=== PATIENT | female | born 1960 | race Hispanic/Latino ===

== ENCOUNTER 2016-06-16 12:18 | Emergency (ER) | payer MEDICAID, OTHER ==
[2016-06-16 12:33] VITALS: BP 129/89; PULSE 89; RESP 16; TEMP 98; O2SAT 97
--- NOTE | 2016-06-16 12:53 | ED PDOC ---
Lower Extremity Pain/Injury Time Seen by Provider: 06/16/16 12:39 Chief Complaint (Nursing): Lower Extremity Problem/Injury History Per: Patient History/Exam Limitations: no limitations Onset/Duration Of Symptoms: Days Current Symptoms Are (Timing): Still Present Severity: Moderate Additional Complaint(s): 55-year-old female, PMHx includes Hypertension, presents to the emergency department with complaints of leg pain. Patient states she has been experiencing pain to B/L lower extremities that started three days ago. Pain is persistent in nature, described as a "deep throbbing" sensation, that is worse when she is walking or standing. Additionally, patient reports that she sustained an injury to her sacral bone two months ago, after which she has had intermittent sacral tenderness, but no radiating to legs. States she was seen by her salesperson new cars for toe pain a few days ago. 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 Denies dizziness, shortness of breath, chest pain, nausea/vomiting, recent travel/immobility for prolonged periods, or any other associated symptoms. No other complaints at this time. Past Medical History Reviewed: Historical Data, Nursing Documentation, Vital Signs Vital Signs: Last Vital Signs Temp 98 F 06/16/16 12:28 Pulse 89 06/16/16 12:28 Resp 16 06/16/16 12:28 BP 129/89 06/16/16 12:28 Pulse Ox 97 06/16/16 12:28 - Medical History PMH: Anxiety, HTN Denies: Chronic Kidney Disease - Surgical History Surgical History: Appendectomy - Family History Family History: States: Unknown Family Hx - Home Medications Home Medications: Ambulatory Orders Medication Instructions Recorded amLODIPine [Norvasc] 5 mg PO DAILY 10/13/14 Naproxen [Naprosyn Tab] 1 tab PO Q8 PRN #21 tab 04/02/16 - Allergies Allergies/Adverse Reactions: Allergies Allergy/AdvReac Type Severity Reaction Status Date / Time No Known Allergies Allergy Verified 06/16/16 12:28 Review of Systems ROS Statement: Except As Marked, All Systems Reviewed And Found Negative Constitutional: Negative for: Fever, Chills Cardiovascular: Negative for: Chest Pain, Palpitations, Edema, Light Headedness Respiratory: Negative for: Shortness of Breath Gastrointestinal: Negative for: Vomiting Musculoskeletal: Positive for: Leg Pain. Negative for: Back Pain Skin: Negative for: Rash Neurological: Negative for: Weakness, Numbness Physical Exam - Reviewed Nursing Documentation Reviewed: Yes Vital Signs Reviewed: Yes - Physical Exam Appears: Positive for: Non-toxic, No Acute Distress Head Exam: Positive for: ATRAUMATIC, NORMOCEPHALIC Skin: Positive for: Warm, Dry. Negative for: Rash Eye Exam: Positive for: Normal appearance Neck: Positive for: Painless ROM Respiratory: Negative for: Accessory Muscle Use, Respiratory Distress Extremity: Positive for: Normal ROM, Calf Tenderness (B/L), Capillary Refill (< 2 seconds), Other (Pulses intact. No skin changes.). Negative for: Tenderness ( B/L THIGH.), Pedal Edema, Deformity, Swelling Neurologic/Psych: Positive for: Alert, Oriented - ECG O2 Sat by Pulse Oximetry: 97 Medical Decision Making Medical Decision Making: Impression: 55y/o F comes in w/ pain to B/L lower extremities. Patient is PERC rule negative Diff Dx (includes but not limited to) DVT (low suspicion) vs Musculoskeletal. Plan: * Ultrasound doppler LE. * Reassess and Disposition US: negtie for dvt pt advised to f/u with pmd and take motrin for pain stable appearing. Scribe Attestation: Documented by Sudhakar Fay, acting as a scribe for OSEI Mccormick. Provider Attestation: All medical record entries made by the Scribe were at my direction and personally dictated by me. I have reviewed the chart and agree that the record accurately reflects my personal performance of the history, physical exam, medical decision making, and the department course for this patient. I have also personally directed, reviewed, and agree with the discharge instructions and disposition. Disposition - Clinical Impression Clinical Impression: Muscle strain - Patient ED Disposition Is Patient to be Admitted: No Counseled Patient/Family Regarding: Studies Performed, Diagnosis, Need For Followup - Disposition Disposition: Routine/Home Disposition Time: 14:50 Condition: STABLE Instructions: Muscle Strain (ED) Print Language: CYMRAES
--- NOTE | 2016-06-16 18:17 | US ---
Bilateral lower extremity venous Doppler exam 06/16/2016. History: Calf pain. Duplex interrogation of the deep veins of the right and left lower extremities performed in standard fashion. No prior study available for comparison. Findings: The the visualized deep veins of the right and left lower extremities exhibit normal flow, compressibility augmentation without evidence of DVT. Impression: No evidence of DVT seen within the visualized deep veins of the right or left lower extremities.
== END 2016-06-16 14:53 | disposition home or self-care (01) ==
LOC: H.ER 12:18
DX: M79.604 Pain in right leg (principal); I10 Essential (primary) hypertension

== ENCOUNTER 2017-10-06 16:33 | Emergency (ER) | payer MEDICAID ==
[2017-10-06 16:58] VITALS: RESP 16; TEMP 98.6
[2017-10-06] MEDS ORDERED: Sodium Chloride 0.9% 1,000 ML IV STA (17:43)
[2017-10-06 18:13] LABS: BASO # 0.1 K/uL (0.0-0.2); BASO % 1.1 % (0.0-2.0); EOS # 0.1 K/uL (0.0-0.7); HEMOGLOBIN 13.2 g/dL (12.0-16.0); LYMPH # 2.7 K/uL (1.0-4.3); LYMPH % 31.5 % (20.0-40.0); MEAN CELL VOLUME 89.3 fl (81.0-99.0); MEAN CORPUSCULAR HEMOGLOBIN 31.1 pg (27.0-31.0); MEAN CORPUSCULAR HGB CONC 34.8 g/dL (33.0-37.0); MEAN PLATELET VOLUME 8.2 fl (7.2-11.7); MONO # 0.7 K/uL (0.0-0.8); MONO % 7.8 % (0.0-10.0); NEUT # 4.9 K/uL (1.8-7.0); NEUT % 58.6 % (50.0-75.0); RBC 4.26 Mil/uL (3.80-5.20); RED CELL DISTRIBUTION WIDTH 12.9 % (11.5-14.5); WHITE BLOOD COUNT 8.4 K/uL (4.8-10.8)
[2017-10-06 18:20] LABS: SQUAMOUS EPITHIAL 1 /hpf (0-5); URINE BILIRUBIN NEGATIVE (NEGATIVE); URINE BLOOD SMALL (NEGATIVE); URINE CLARITY SLIGHTY-CLOUDY (Clear); URINE COLOR YELLOW (YELLOW); URINE GLUCOSE (UA) NEG (Normal); URINE LEUKOCYTE ESTERASE NEG Leu/uL (Negative); URINE PROTEIN NEGATIVE (NEGATIVE); URINE UROBILINOGEN 0.2-1.0 mg/dL (0.2-1.0)
[2017-10-06 18:24] LABS: ALB/GLOB RATIO 1.2 (1.0-2.1); ALBUMIN 4.4 g/dL (3.5-5.0); ALT/SGPT 54 U/L (9-52); AST/SGOT 44 U/L (14-36); BLOOD UREA NITROGEN 11 mg/dl (7-17); CALCIUM 9.3 mg/dL (8.4-10.2); GFR NON-AFRICAN AMERICAN > 60
--- NOTE | 2017-10-06 21:31 | ED PDOC ---
HPI: Female Pain Time Seen by Provider: 10/06/17 17:29 Chief Complaint (Nursing): Female Genitourinary Chief Complaint (Provider): pelvic discomfort History Per: Patient History/Exam Limitations: no limitations Onset/Duration Of Symptoms: Days (3), Gradual Current Symptoms Are (Timing): Still Present Severity: Mild Quality Of Discomfort: Sharp, Burning Associated Symptoms: Back Pain. denies: Fever, Chills, Nausea, Vomiting, Diarrhea, Loss Of Appetite Alleviating Factors: None Additional Complaint(s): 57yo female c/o R pelvic pain ongoing for several days associated with some urinary discomfort and vaginal spotting (?). +mild back pain. Denies fever, syncope or diarrhea/vomiting. PMD [facility] Naik Abnormal Vaginal Bleeding: Yes Last Menstral Period: spotting Past Medical History Reviewed: Historical Data, Nursing Documentation, Vital Signs Vital Signs: Last Vital Signs Temp 98.6 F 10/06/17 16:56 Pulse 73 10/06/17 16:56 Resp 16 10/06/17 16:56 BP 148/82 10/06/17 16:56 Pulse Ox 99 10/06/17 16:56 - Medical History PMH: Anxiety, HTN Denies: Chronic Kidney Disease - Surgical History Surgical History: Appendectomy - Family History Family History: States: Unknown Family Hx - Living Arrangements Living Arrangements: With Family - Social History Current smoker - smoking cessation education provided: No Alcohol: None - Home Medications Home Medications: Ambulatory Orders Medication Instructions Recorded amLODIPine [Norvasc] 5 mg PO DAILY 10/13/14 Naproxen [Naprosyn Tab] 1 tab PO Q8 PRN #21 tab 04/02/16 Cephalexin [cephalexin] 500 mg PO BID #10 cap 10/06/17 - Allergies Allergies/Adverse Reactions: Allergies Allergy/AdvReac Type Severity Reaction Status Date / Time No Known Allergies Allergy Verified 10/06/17 16:56 Review of Systems Constitutional: Negative for: Fever ENT: Negative for: Throat Pain Cardiovascular: Negative for: Chest Pain Respiratory: Negative for: Shortness of Breath Gastrointestinal: Positive for: Abdominal Pain Genitourinary Female: Positive for: Dysuria, Frequency, Pelvic Pain Musculoskeletal: Negative for: Neck Pain Skin: Negative for: Rash, Lesions Neurological: Negative for: Weakness Physical Exam - Reviewed Nursing Documentation Reviewed: Yes Vital Signs Reviewed: Yes - Physical Exam Appears: Positive for: Well, Non-toxic, No Acute Distress Head Exam: Positive for: ATRAUMATIC, NORMAL INSPECTION, NORMOCEPHALIC Skin: Positive for: Normal Color, Warm, DRY Eye Exam: Positive for: EOMI, Normal appearance, PERRL ENT: Positive for: Normal ENT Inspection Neck: Positive for: Normal, Painless ROM Cardiovascular/Chest: Positive for: Regular Rate, Rhythm Respiratory: Positive for: CNT, Normal Breath Sounds Gastrointestinal/Abdominal: Positive for: Soft, Tenderness (RLQ mild). Negative for: Guarding, Rebound Back: Positive for: Normal Inspection Extremity: Positive for: Normal ROM Neurologic/Psych: Positive for: Alert, Oriented - Laboratory Results Result Diagrams: 10/06/17 18:06 10/06/17 18:06 Urine POC: Negative Urine dip results: Positive for: Blood - ECG O2 Sat by Pulse Oximetry: 99 Pulse Ox Interpretation: Normal Medical Decision Making Medical Decision Making: labs reviewed and clinically unremarkable small blood in urine EXAM DATE/TIME: 10/06/2017 5:44 PM CLINICAL HISTORY: 57 years old, female; Pain; Pelvic pain; Additional info: Rlq pain x3 days TECHNIQUE: Real-time transabdominal and transvaginal pelvic ultrasound (complete) with image documentation. Transvaginal imaging was used for better evaluation of the endometrium and adnexa. COMPARISON: No relevant prior studies available. FINDINGS: Uterus/cervix: Cervix is closed. Normal endometrial stripe thickness, measuring 3 mm. No myometrial mass. Right ovary: Unremarkable. No mass. Normal blood flow. Left ovary: Unremarkable. No mass. Normal blood flow. Free fluid: No free fluid. IMPRESSION: Normal pelvic ultrasound. Thank you for allowing us to participate in the care of your patient. Dictated and Authenticated by: Mark Odom MD 10/06/2017 8:19 PM Eastern Time ([place] & [place]) CT: COMPARISON: PELVIS/TRANSVAG US 10/06/2017 6:23 PM FINDINGS: Lung bases: Unremarkable. No mass. No consolidation. FINDINGS: Lung bases: Unremarkable. No mass. No consolidation. ABDOMEN: Liver: The liver is unremarkable. Gallbladder and bile ducts: The gallbladder is unremarkable. No biliary ductal dilatation. Pancreas: The pancreas is unremarkable. Spleen: The spleen is unremarkable. Adrenals: The adrenal glands are unremarkable. Kidneys and ureters: No hydronephrosis or nephrolithiasis. Stomach and bowel: No evidence of bowel obstruction. No pericolonic inflammatory stranding. PELVIS: Appendix: Appendix is not seen but there is no pericecal inflammatory change to suggest appendicitis. Bladder: No focal wall thickening of the urinary bladder. No stones. Reproductive: Uterus is unremarkable. No suspicious adnexal lesion seen. ABDOMEN and PELVIS: Intraperitoneal space: Unremarkable. No free air. No significant fluid collection. Bones/joints: No acute osseous abnormality. Soft tissues: No soft tissue swelling. Vasculature: Significantly limited assessment of the vasculature without contrast. No aortic aneurysm. Lymph nodes: No enlarged lymph nodes. IMPRESSION: 1. No hydronephrosis or nephrolithiasis. 2. Appendix is not seen but there is no pericecal inflammatory change to suggest appendicitis. Thank you for allowing us to participate in the care of your patient. Dictated and Authenticated by: Mark Odom MD 10/06/2017 8:15 PM Eastern Time ([place] & [place]) appears well in ED, abd nontender on re-eval 1030pm DC to followup PMD and [employer] given small ?vag spotting. Rx naprosyn, indications for return ER discussed. given symptoms cover w keflex for now until Urine cx negative Disposition - Clinical Impression Clinical Impression: Pelvic pain, Urinary tract infection - Patient ED Disposition Is Patient to be Admitted: No Counseled Patient/Family Regarding: Studies Performed, Diagnosis, Need For Followup, Rx Given - Disposition Referrals: Becki Naik MD [Staff Provider] - Disposition: Routine/Home Disposition Time: 23:29 Condition: STABLE Additional Instructions: Followup with Dr Naik and [employer] in 1-2 weeks, return to ER for any worse or new symptoms. Prescriptions: Cephalexin [cephalexin] 500 mg PO BID #10 cap Instructions: Urinary Tract Infections in Adults, Acute Abdomen (Belly Pain), Adult (DC) Forms: [employer] (Indonesian)
[2017-10-06 23:54] VITALS: BP 139/78; PULSE 70; O2SAT 97
--- NOTE | 2017-10-07 11:19 | US ---
Date of service: 10/06/2017 HISTORY: RLQ pain x3 days COMPARISON: None available. TECHNIQUE: Transvaginal pelvic ultrasound was performed. FINDINGS: UTERUS: Measures 6.9 x 4.4 x 3.0 cm. Anteverted, normal in size and appearance. No fibroid or other mass lesion seen. ENDOMETRIUM: Measures 2.8 mm in diameter. Normal appearance. CERVIX: No cervical abnormality identified. RIGHT OVARY: Measures 2.2 x 1.3 x 1.0 cm. No solid mass. Normal flow. LEFT OVARY: Measures 1.9 x 1.0 x 1.0 cm. No solid mass. Normal flow. FREE FLUID: No significant free fluid noted. OTHER FINDINGS: None. IMPRESSION: Normal pelvic ultrasound. A preliminary report was provided by [facility].
--- NOTE | 2017-10-07 12:13 | CT ---
Date of service: 10/06/2017 PROCEDURE: CT Abdomen and Pelvis without intravenous contrast HISTORY: RLQ and R flank pain, hematuria COMPARISON: None. TECHNIQUE: CT scan of the abdomen and pelvis was performed without administration of intravenous contrast. Oral contrast was not administered. Coronal and sagittal reformatted images were obtained. . Radiation dose: Total exam DLP = 568.29 mGy-cm. This CT exam was performed using one or more of the following dose reduction techniques: Automated exposure control, adjustment of the mA and/or kV according to patient size, and/or use of iterative reconstruction technique. FINDINGS: LOWER THORAX: There is dependent atelectasis in the lung bases. LIVER: Normal in size. No intrahepatic ductal dilatation. GALLBLADDER AND BILE DUCTS: No calcified gallstones. No biliary dilatation PANCREAS: Normal in size. No ductal dilatation. SPLEEN: Normal in size. ADRENALS: Normal in size. No discrete nodule. KIDNEYS AND URETERS: The right kidney is normal in size. There is mild fullness in the right collecting system and mild dilatation of the proximal and mid ureteral. No obstructing stone. The left kidney is normal in size without nephrolithiasis. No hydronephrosis. VASCULATURE: No aortic aneurysm. BOWEL: The small bowel loops are normal in caliber. There is moderate amount of stool in the colon and fecalization of distal small bowel contents consistent with chronic stasis. Scattered left colonic diverticula. . No bowel dilatation or wall thickening. No bowel obstruction. APPENDIX: No inflammatory changes in the right lower quadrant. PERITONEUM: No free fluid. No free air. LYMPH NODES: No enlarged lymph nodes. BLADDER: Well distended and grossly normal in appearance. REPRODUCTIVE: The uterus is normal in size BONES: No acute fracture. Within normal limits for the patient's age. OTHER FINDINGS: None. IMPRESSION: Mild fullness in the right renal collecting system and mild dilatation of the proximal and mid ureteral without evidence of obstructing stone. Findings could represent recent passage of stone. Pyelonephritis is not completely excluded however cannot be evaluated on noncontrast CT examination. Please correlate with urine analysis. No CT evidence for acute appendicitis. A preliminary report was provided by [facility].
== END 2017-10-06 23:54 | disposition home or self-care (01) ==
LOC: H.ER 16:33
DX: R10.2 Pelvic and perineal pain (principal); N39.0 Urinary tract infection, site not specified; I10 Essential (primary) hypertension; F41.9 Anxiety disorder, unspecified
CPT/HCPCS: 74176; 76830; 76856; 80053; 81003; 81025; 85025; 87086; 96374; 99283; J1885; J7030

== ENCOUNTER 2018-07-09 16:42 | Emergency (ER) | payer MEDICAID ==
--- NOTE | 2018-07-09 18:31 | ED PDOC ---
History of Present Illness History of Present Illness: 57 year old female presents to ED with cough, bodyaches, fever (to 101 F), sore throat, and diarrhea x4 days. Then the following day patient developed cough productive of green sputum and occasional SOB mostly at night. She also reports right sided ear pain but denies nausea, vomiting, nasal congestion. Patient further states she has had a hoarse throat for past few days. She has been taking Azithromycin 500 mg daily since 4 days ago, which was left over from previous prescription as she could not obtain an appointment with PMD until 2 weeks from now. Additionally, she states that ear pain has improved over past couple of days. Patient has not received flu shot this season. She further admits to having urinary frequency with foul odor as well as light brown colored vaginal discharge for past 4-5 days and vaginal itching. She has not taken any medications for the pain. PMD: none provided HPI: Influenza Time Seen by Provider: 07/09/18 16:59 Chief Complaint: Cough, Cold, Congestion Chief Complaint (Provider): Cough History Per: Patient Exam Limitations: no limitations Onset/Duration Of Symptoms: Days Past Medical History Reviewed: Historical Data, Nursing Documentation, Vital Signs Vital Signs: Last Vital Signs Temp 98.5 F 07/09/18 16:53 Pulse 81 07/09/18 16:53 Resp 16 07/09/18 16:53 BP 159/95 H 07/09/18 16:53 Pulse Ox 95 07/09/18 16:53 Primary Care Provider: Non [facility] Provider, - Medical History PMH: Anxiety, HTN Denies: Chronic Kidney Disease - Surgical History Surgical History: Appendectomy - Family History Family History: States: Unknown Family Hx - Social History Current smoker - smoking cessation education provided: No Alcohol: None Drugs: Denies - Immunization History Hx Tetanus Toxoid Vaccination: No Hx Influenza Vaccination: No Hx Pneumococcal Vaccination: No - Home Medications Home Medications: Ambulatory Orders Medication Instructions Recorded amLODIPine [Norvasc] 5 mg PO DAILY 10/13/14 Naproxen [Naprosyn Tab] 1 tab PO Q8 PRN #21 tab 04/02/16 Cephalexin [cephalexin] 500 mg PO BID #10 cap 10/06/17 Ibuprofen [Motrin Tab] 600 mg PO Q6 PRN #15 tab 10/06/17 Ibuprofen [Motrin Tab] 600 mg PO Q6 PRN 7 Days tab 07/09/18 Metronidazole 500 mg PO BID 7 Days tablet 07/09/18 guaiFENesin/Dextromethorphan 10 ml PO Q6 PRN 7 Days udc 07/09/18 [guaiFENesin-DM] - Allergies Allergies/Adverse Reactions: Allergies Allergy/AdvReac Type Severity Reaction Status Date / Time No Known Allergies Allergy Verified 07/09/18 16:54 Review of Systems ROS Statement: Except As Marked, All Systems Reviewed And Found Negative Constitutional: Positive for: Fever (101 F), Other (bodyaches) ENT: Positive for: Ear Pain (right sided), Throat Pain (sore throat), Other (hoarse throat). Negative for: Nose Congestion Respiratory: Positive for: Cough (productive of green sputum), Shortness of Breath (occasional, mostly at night) Gastrointestinal: Positive for: Diarrhea. Negative for: Nausea, Vomiting Genitourinary Female: Positive for: Frequency (foul odor), Vaginal Discharge (light brown color), Other (vaginal itching) Physical Exam - Reviewed Nursing Documentation Reviewed: Yes Vital Signs Reviewed: Yes - Physical Exam Appears: Positive for: No Acute Distress Head Exam: Positive for: ATRAUMATIC, NORMAL INSPECTION, NORMOCEPHALIC Eye Exam: Positive for: EOMI, Normal appearance, PERRL ENT: Positive for: Other (mild effusion on the right, no erythema, normal throat). Negative for: TM Is/Are (bulging) Cardiovascular/Chest: Positive for: Regular Rate, Rhythm. Negative for: Murmur Respiratory: Positive for: Normal Breath Sounds. Negative for: Respiratory Distress Pelvic Exam: Positive for: External Exam Normal, Speculum Exam Normal (performed in the presence of transport specialist Gabriela), Discharge (yellow discharge noted in vaginal vault). Negative for: Active Bleeding, Cervicitis, Lesions, Mass, Tender W/Cervical Motion, Tender Adnexa, Ulcers Back: Positive for: Normal Inspection. Negative for: L CVA Tenderness, R CVA Tenderness Lymphatic: Positive for: Normal Exam Neurological/Psych: Positive for: Awake, Alert, Oriented (x3) Medical Decision Making Medical Decision Making: Time: 1809 Initial Impression: Initial Plan: --UDip --Urine culture --Rapid flu --Ibuprofen 600 mg PO x1 --CXR --Pelvic exam 1820 UDip Small amount of blood, leukocyte and nitrate negative, cloudy so UA ordered 1951 Pelvic exam done in the presence of transport specialist Gabriela. External exam was normal but speculum exam shows white yellow discharge and no cervicitis. Discharge was thin. Bimanual exam was normal. Genital culture and patient to be treated for bacterial vaginosis and advised to be called when general results are significant for other findings. Scribe Attestation: Documented by Valdez Flores, acting as a scribe for Kalpana Arevalo PA-C Provider Scribe Attestation: All medical record entries made by the Scribe were at my direction and personally dictated by me. I have reviewed the chart and agree that the record accurately reflects my personal performance of the history, physical exam, medical decision making, and the department course for this patient. I have also personally directed, reviewed, and agree with the discharge instructions and disposition. - ECG O2 Sat by Pulse Oximetry: 95 (RA) Pulse Ox Interpretation: Normal Disposition - Clinical Impression Clinical Impression: Influenza-like illness, Bacterial vaginosis - Patient ED Disposition Is Patient to be Admitted: No - Disposition Referrals: [facility] [Outside] Disposition: Routine/Home Disposition Time: 20:08 Condition: STABLE Additional Instructions: Take Robitussin for Cough. Take Metronidazole for vaginal discharge. Return to ER if your shortness of breath or symptoms worsen. No further Azithromycin or antibiotics needed. Prescriptions: guaiFENesin/Dextromethorphan [guaiFENesin-DM] 10 ml PO Q6 PRN 7 Days udc PRN Reason: Cough Ibuprofen [Motrin Tab] 600 mg PO Q6 PRN 7 Days tab PRN Reason: Pain, Moderate (4-7) Metronidazole 500 mg PO BID 7 Days tablet Instructions: Bacterial Vaginosis (DC), Viral Syndrome (DC) Forms: [facility] (Filipino) Print Language: MOHAWK
[2018-07-09 19:03] LABS: SQUAMOUS EPITHIAL 1 /hpf (0-5); URINE BACTERIA RARE (<OCC); URINE BILIRUBIN NEGATIVE (NEGATIVE); URINE BLOOD SMALL (NEGATIVE); URINE CLARITY SLIGHTY-CLOUDY (Clear); URINE COLOR YELLOW (YELLOW); URINE GLUCOSE (UA) NEG (NEGATIVE); URINE LEUKOCYTE ESTERASE NEG Leu/uL (Negative); URINE PROTEIN NEGATIVE (NEGATIVE); URINE UROBILINOGEN 0.2-1.0 mg/dL (0.2-1.0)
[2018-07-09 20:12] VITALS: BP 145/90; PULSE 87; RESP 17; TEMP 98.9
[2018-07-10 01:11] VITALS: O2SAT 95
--- NOTE | 2018-07-10 09:36 | RAD ---
Date of service: 07/09/2018 HISTORY: shortness of breath, cough COMPARISON: Chest radiographs 11/15/2012. TECHNIQUE: Chest PA and lateral views FINDINGS: LUNGS: No active pulmonary disease. PLEURA: No significant pleural effusion identified. No pneumothorax apparent. CARDIOVASCULAR: No aortic atherosclerotic calcification present. Normal cardiac size. No pulmonary vascular congestion. OSSEOUS STRUCTURES: Subtle dextroscoliotic thoracic spinal deformity reiterated. VISUALIZED UPPER ABDOMEN: Normal. OTHER FINDINGS: None. IMPRESSION: No interval acute cardiopulmonary disease appreciated.
== END 2018-07-09 20:12 | disposition home or self-care (01) ==
LOC: H.ER 16:42
DX: J11.1 Influenza due to unidentified influenza virus with other respiratory manifestations (principal); N76.0 Acute vaginitis; R19.7 Diarrhea, unspecified